=== PATIENT | male | born 1975 | race Caucasian/White ===

== ENCOUNTER → 2017-04-22 | Outpatient (CLI) | payer BC ==
--- NOTE | 2017-04-22 09:15 | Diagnostic Imaging Report ---
INDICATION: Back pain COMPARISON: None FINDINGS: Frontal and lateral views of the thoracic spine were obtained. Visualization of the upper thoracic spine is limited on the lateral projection. Alignment and vertebral heights are maintained. There is no fracture or destructive process. There are no large paraspinal masses. Limited views of the lungs are clear. IMPRESSION: 1. No acute fracture or dislocation of the thoracic spine. Dictated by: Dictated on workstation # [id number]
--- NOTE | 2017-04-22 09:18 | Diagnostic Imaging Report ---
INDICATION: Neck pain COMPARISON: None FINDINGS: Frontal, lateral, and odontoid views of the cervical spine were submitted. The cervical spine is visualized up to the C7/T1 level on the lateral projection. There is normal vertebral height and alignment. There is no evidence of fracture or bone destruction. No prevertebral soft tissue swelling is seen. No significant degenerative changes are noted. The open-mouth view demonstrates normal C1/C2 alignment. IMPRESSION: 1. Normal cervical spine series. Dictated by: Dictated on workstation # [id number]
--- NOTE | 2017-04-22 10:04 | Diagnostic Imaging Report ---
Three views of the lumbar spine. INDICATION: Back pain. FINDINGS: The alignment of the lumbar spine is satisfactory. The vertebral body heights are preserved. Disc heights are also preserved. No significant osteophyte formation seen. The paraspinal soft tissues appear unremarkable. IMPRESSION: Unremarkable exam. Dictated by: Dictated on workstation # [id number]
== END ==
LOC: RAD 08:41
PROVIDERS: ATTEND Nurse Practitioner Family
DX: M54.2 Cervicalgia (principal); M54.6 Pain in thoracic spine; M54.5 Low back pain
CPT/HCPCS: 72040; 72072; 72100

== ENCOUNTER → 2017-06-30 | Outpatient (CLI) | payer BC ==
--- NOTE | 2017-06-30 08:37 | Diagnostic Imaging Report ---
PROCEDURE: MR imaging cervical spine without contrast. TECHNIQUE: Multiplanar, multisequence MR imaging of the cervical spine was performed without contrast. INDICATION: Neck pain for 3 months. FINDINGS: Cervical spinal curvature and alignment are within normal limits. Vertebral body heights and disc spaces are maintained without evidence of marrow edema to indicate fracture. There is no evidence of focal disc protrusion or significant stenosis. There is a slender region of increased T2 signal centrally within the spinal cord at C6 and C7 without associated mass effect. Remainder of the spinal cord is unremarkable in appearance. Note is made of an approximately 2.4 x 2.3 cm nodule in the left lobe of thyroid gland. IMPRESSION: No evidence of significant stenosis is seen in the spinal cord. There maybe minimal syrinx present at C6 and C7 without associated mass effect. If indicated, contrast-enhanced MRI may be of use for further evaluation. Note is made of approximately 2.4 cm nodule in the left lobe of thyroid gland. Clinical correlation laboratory values may be of value. Biopsy could be performed if indicated. Dictated by: Dictated on workstation # [id number]
== END ==
LOC: RAD 07:14
PROVIDERS: ATTEND Nurse Practitioner Family
DX: E04.1 Nontoxic single thyroid nodule (principal); M79.643 Pain in unspecified hand
CPT/HCPCS: 72141

== ENCOUNTER → 2017-07-17 | Outpatient (CLI) | payer BC ==
--- NOTE | 2017-07-17 10:55 | Diagnostic Imaging Report ---
PROCEDURE: US Thyroid. TECHNIQUE: Multiple real-time grayscale images were obtained of the thyroid in various projections. INDICATION: Thyroid nodule. COMPARISON: None. FINDINGS: The right thyroid measures 57 x 19 x 18 mm and left 55 x 25 x 30 mm. There is a large well-defined nodule in the left mid thyroid measuring approximately 3.5 x 2 cm. 3 smaller nodules are seen in the right. The largest is near the isthmus measuring 11 x 8 mm. These are likely benign. There is no inflammation. IMPRESSION: Likely benign thyroid nodules. However, largest nodule in the left may be percutaneously biopsied to exclude underlying malignancy. Dictated by: Dictated on workstation # [id number]
== END ==
LOC: RAD 08:06
PROVIDERS: ATTEND Nurse Practitioner Family
DX: E04.2 Nontoxic multinodular goiter (principal)
CPT/HCPCS: 76536

== ENCOUNTER → 2017-08-06 | Outpatient (CLI) | payer BC ==
[~2017-08-06] VITALS: Ht 177.8 cm; Wt 88.5 kg
[2017-08-06 11:00] VITALS: BP_SYST 124; BP_SYST 134; BP_DIAS 64; BP_DIAS 84
--- NOTE | 2017-08-06 11:23 | Diagnostic Imaging Report ---
INDICATION: Left thyroid nodule. TECHNIQUE: Sonographic guidance was provided for Dr. Pak for performance of a left thyroid mass fine needle aspiration. Multiple passes were made. IMPRESSION: Sonographic guidance for thyroid biopsy by Dr. Pak. Dictated by: Dictated on workstation # [id number]
== END ==
LOC: RAD 10:41
PROVIDERS: ATTEND Otolaryngology Otolaryngology/Facial Plastic Surgery
DX: E04.1 Nontoxic single thyroid nodule (principal)
CPT/HCPCS: 76942

== ENCOUNTER → 2017-11-10 | Outpatient (CLI) | payer BC | LOC: RAD 11:03 | PROVIDERS: ATTEND Otolaryngology Otolaryngology/Facial Plastic Surgery | DX: Z53.9 Procedure and treatment not carried out, unspecified reason (principal) ==

== ENCOUNTER → 2017-11-19 | Outpatient (CLI) | payer BC ==
[~2017-11-19] VITALS: Ht 177.8 cm; Wt 88.5 kg
[2017-11-19 10:47] VITALS: BP 134/81
[2017-11-19 11:09] VITALS: BP 124/68
--- NOTE | 2017-11-19 11:40 | Diagnostic Imaging Report ---
INDICATION: Left thyroid nodule. Sonographic guidance was provided for Dr. Pak for left thyroid FNA. Images demonstrate large solid left lobe thyroid nodule. This was sampled by Dr. Pak. IMPRESSION: Sonographic guidance for left thyroid FNA. Dictated by: Dictated on workstation # [id number]
== END ==
LOC: RAD 10:40
PROVIDERS: ATTEND Otolaryngology Otolaryngology/Facial Plastic Surgery
DX: E04.1 Nontoxic single thyroid nodule (principal)
CPT/HCPCS: 76942; 88305

== ENCOUNTER → 2018-04-19 | Outpatient (CLI) | payer BC ==
[~2018-04-19] MED LIST: CATHETER FLUSH 10 ML SYR IV PRN; IOHEXOL 350 MG/ML 100 ML (OMNIPAQUE 350) VIAL IV ONE; NS 250 ML (IVPB) BAG IV ONE; RECEIVED CONTRAST (Hold Metformin) IV SCH
--- NOTE | 2018-04-19 16:07 | Diagnostic Imaging Report ---
PROCEDURE: CT neck soft tissue with contrast. TECHNIQUE: Multiple contiguous axial images were obtained through the neck after the administration of contrast. INDICATION: Neck abscess. COMPARISON: Left thyroid nodule aspiration 08/06/2017, 11/19/2017. MRI of the cervical spine without contrast 06/30/2017. FINDINGS: Interval postoperative findings of a total thyroidectomy. Within the anterior aspect of the operative bed is a well-circumscribed peripheral enhancing fluid collection measuring approximately 2.8 x 1.9 x 1.7 cm. Additional soft tissue attenuation and enhancement along the posterior inferior margin of the fluid collection is more consistent with phlegmon. No cervical lymphadenopathy. The major salivary glands are unremarkable. The pharyngeal and laryngeal soft tissues are symmetric bilaterally with no focal mass or enhancement. The floor of the mouth, tongue base and epiglottis are negative. No acute CT findings in the cervical spine. Skull base is intact. The visualized paranasal sinuses are clear. The lung apices are clear. IMPRESSION: Interval postoperative findings of a thyroidectomy. There is a well-circumscribed fluid collection in the surgical bed measuring up to 2.8 cm consistent with an abscess versus seroma. If clinically warranted, this should be readily accessible by ultrasound-guided aspiration. Dictated by: Dictated on workstation # [id number]
== END ==
LOC: RAD 15:28
PROVIDERS: ATTEND Physician Assistant Surgical
DX: C73 Malignant neoplasm of thyroid gland (principal); L02.11 Cutaneous abscess of neck; E89.0 Postprocedural hypothyroidism; Z90.89 Acquired absence of other organs; Z98.890 Other specified postprocedural states
CPT/HCPCS: 70491

== ENCOUNTER → 2018-10-29 | Outpatient (CLI) | payer BC ==
--- NOTE | 2018-10-29 14:19 | Diagnostic Imaging Report ---
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 FINDINGS: Postop changes of total thyroidectomy are noted. No definite residual or recurrent mass is seen in the thyroid bed. No fluid collection is identified. IMPRESSION: Thyroidectomy. No residual or recurrent mass is identified. Dictated by: Dictated on workstation # [id number]
== END ==
LOC: RAD 08:46
PROVIDERS: ATTEND Internal Medicine
DX: C73 Malignant neoplasm of thyroid gland (principal); Z90.89 Acquired absence of other organs
CPT/HCPCS: 76536

== ENCOUNTER → 2019-08-16 | Outpatient (CLI) | payer BC ==
--- NOTE | 2019-08-16 14:06 | Diagnostic Imaging Report ---
INDICATION: Thyroid carcinoma. FINDINGS: Patient is status post total thyroidectomy. Sonographic interrogation of the thyroid bed was performed. No definite residual thyroid tissue or mass is identified. No fluid collection is identified. IMPRESSION: Status post thyroidectomy. No residual or recurrent thyroid tissue or mass is detected. Dictated by: Dictated on workstation # [id number]
== END ==
LOC: RAD 12:27
PROVIDERS: ATTEND Internal Medicine
DX: C73 Malignant neoplasm of thyroid gland (principal); Z90.89 Acquired absence of other organs
CPT/HCPCS: 76536

== ENCOUNTER → 2020-02-21 | Outpatient (CLI) | payer BC | LOC: LABNPT 06:19 | PROVIDERS: ATTEND Family Medicine | DX: R51 Headache (principal); R09.81 Nasal congestion; Z20.828 Contact with and (suspected) exposure to other viral communicable diseases | CPT/HCPCS: 87635 ==

== ENCOUNTER → 2021-03-15 | Outpatient (CLI) | payer BC ==
[~2021-03-15] MED LIST changes: +HOLD METFORMIN - RECEIVED CONTRAST 20 ML VIAL IV SCH; +NS 100 ML (IVPB) BAG IV ONE; -NS 250 ML (IVPB) BAG IV ONE; -RECEIVED CONTRAST (Hold Metformin) IV SCH
--- NOTE | 2021-03-15 09:25 | Diagnostic Imaging Report ---
PROCEDURE: CT neck soft tissue with contrast. TECHNIQUE: Multiple contiguous axial images were obtained through the neck after the administration of contrast. Auto Exposure Controls were utilized during the CT exam to meet ALARA standards for radiation dose reduction. INDICATION: Difficulty swallowing The previous CT neck exam of 04/19/2018 there are postsurgical changes consistent with thyroidectomy. There is also a well-circumscribed fluid collection in the surgical bed measuring approximately 2.8 x 1.9 cm. This is felt to be related to a postoperative seroma and/or abscess. The subsequent ultrasound examination of the neck performed on 10/29/2018 failed to show any sign of residual or recurrent mass involving the thyroid bed. The thyroid ultrasound exam of 08/16/2019 was also unremarkable for any significant abnormality. On this exam there is still no evidence for a mass in the thyroid bed to suggest recurrent thyroid tissue. There is no mass or abscess identified either. There is no other mass or adenopathy involving the neck. The parotid and submandibular glands are generally unremarkable. The intracranial contents and the lung apices were visualized show no sign of an acute abnormality. Incidental note is made of a 1.1 cm oval area of diminished density near midline in the prevertebral soft tissues at the level of the dense. 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 This finding was also present on the prior study and has not changed. The bone windows are unremarkable for a fracture or for a destructive lesion. IMPRESSION: 1. There is no evidence for a mass in the thyroid bed to suggest recurrent thyroid tissue. The seroma/abscess seen in this area on the previous CT exam from 2018 has resolved as well. 2. There is no other mass or adenopathy involving the neck. 3. There is no sign of an acute abnormality. 4. There is a question of a small Tornwaldt cyst. This is unlikely to be clinically significant. Dictated by: Dictated on workstation # [id number]
== END ==
LOC: RAD 08:30
PROVIDERS: ATTEND Nurse Practitioner Family
DX: R13.10 Dysphagia, unspecified (principal); Z85.850 Personal history of malignant neoplasm of thyroid
CPT/HCPCS: 70491

== ENCOUNTER 2022-02-03 14:22 | Emergency (ER) | payer OTHER, BC ==
[~2022-02-03] VITALS: Ht 175 cm; Wt 88.0 kg
--- NOTE | 2022-02-03 14:39 | ED General ---
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 He was using a hydraulic press and a piece of the screw that was getting pressed broke off and hit him in the left upper abdomen. He has no other injuries. Unclear when his last tetanus shot was. Last p.o. intake was 11:00 this morning. Did not hit his head or get knocked out but the impact did not came to the ground. He has mild left-sided abdominal pain that is dull and throbbing. No aggravating or alleviating factors. Mild to moderate. Allergies and Home Medications Allergies Coded Allergies: No Known Drug Allergies (Unverified , 08/24/14) Patient Home Medication List Home Medication List Reviewed: Yes Review of Systems Review of Systems Constitutional: no symptoms reported EENTM: no symptoms reported Respiratory: no symptoms reported Cardiovascular: no symptoms reported Gastrointestinal: abdominal pain Genitourinary: no symptoms reported Musculoskeletal: no symptoms reported Skin: no symptoms reported Psychiatric/Neurological: No Symptoms Reported Hematologic/Lymphatic: No Symptoms Reported Immunological/Allergic: no symptoms reported Past Rfjblvj-Suvpzm-Fmfbyp Hx Patient Social History Tobacco Use?: Yes Substance use?: No Alcohol Use?: No Family Medical History Reviewed Nursing Family Hx No Pertinent Family Hx Physical Exam Vital Signs Vital Signs - First Documented 02/03/22 14:30 Temp 37.1 Pulse 72 Resp 16 B/P (MAP) 134/92 (106) Pulse Ox 94 O2 Delivery Room Air Capillary Refill : Height, Weight, BMI Height: 5'10.00" Weight: 195lbs. 0.0oz. 88.840200ja; 28.0 BMI Method: General Appearance: No Apparent Distress, WD/WN Eyes: Bilateral Eye Normal Inspection, Bilateral Eye PERRL, Bilateral Eye EOMI, Bilateral Eye Abnormal EOM, Bilateral Eye Abnormal Pupil, Bilateral Eye Conjunctivae Pale, Bilateral Eye Lid Inflammation, Bilateral Eye Photophobia, Bilateral Eye Scleral Icterus, Bilateral Eye Other HEENT: PERRL/EOMI, TMs Normal, Normal ENT Inspection, Pharynx Normal Neck: Full Range of Motion, Normal Inspection, Non Tender, Supple Respiratory: Chest Non Tender, Lungs Clear, Normal Breath Sounds, No Accessory Muscle Use, No Respiratory Distress Cardiovascular: Regular Rate, Rhythm, No Edema, No Gallop, No JVD, No Murmur, Normal Peripheral Pulses Gastrointestinal: Normal Bowel Sounds, No Organomegaly, No Pulsatile Mass, Soft, Tenderness (Tenderness palpation the left mid abdomen overlying an area of skin abrasion, possibly 1.5 cm maximal length. No rebound or guarding. No mass or megaly.) Back: Normal Inspection, No CVA Tenderness, No Vertebral Tenderness Extremity: Normal Capillary Refill, Normal Inspection, Normal Range of Motion, Non Tender Neurologic/Psychiatric: Oriented x3, No Motor/Sensory Deficits, Normal Mood/Affect Skin: Normal Color, Other (Abrasion as described above) Progress/Results/Core Measures Suspected Sepsis SIRS Temperature: Pulse: Respiratory Rate: Blood Pressure / Mean: Results/Orders My Orders Orders - LENOTIM GUERREROtPertmiguel(Acell),Tet Adult (Boostrix (02/03/22 14:45) Ct Abdomen/Pelvis W (02/03/22 14:34) Iohexol Injection (Omnipaque 350 Mg/Ml 1 (02/03/22 15:00) Ns (Ivpb) (Sodium Chloride 0.9% Ivpb Bag (02/03/22 15:00) Medications Given in ED Current Medications Medications Dose Ordered Sig/Wilfred Route Start Time Stop Time Status Last Admin Dose Admin Iohexol 100 ml ONCE ONCE IV 02/03/22 15:00 02/03/22 15:01 DC 02/03/22 15:24 80 ML Sodium Chloride 100 ml ONCE ONCE IV 02/03/22 15:00 02/03/22 15:01 DC 02/03/22 15:24 80 ML Vital Signs/I&O 02/03/22 14:30 Temp 37.1 Pulse 72 Resp 16 B/P (MAP) 134/92 (106) Pulse Ox 94 O2 Delivery Room Air Capillary Refill : Departure Communication (Admissions) Patient is significantly stable. Tetanus updated in the emergency department. CT scan negative. No other injuries. Discharged in stable condition. Impression Primary Impression: Left lateral abdominal pain Additional Impression: Skin abrasion Disposition: HOME, SELF-CARE Condition: Stable Departure-Patient Inst. Referrals: AZALIA GIRALDO MD (PCP/Family) Primary Care Physician Patient Instructions: Acute Pain, Adult (DC), Abrasions ED Add. Discharge Instructions: Use ibuprofen and Tylenol as needed for pains. All discharge instructions reviewed with patient and/or family. Voiced understanding. TIM BURR DO Feb 03, 2022 14:39
[2022-02-03] MEDS ORDERED: TETANUS,DIPTH,PERTUSS P/F (BOOSTRIX) 0.5 ML VIAL IM ONE (14:45)
[2022-02-03] MEDS ORDERED: NS 100 ML (IVPB) BAG IV ONE (15:00)
[2022-02-03] MEDS ORDERED: IOHEXOL 350 MG/ML 100 ML (OMNIPAQUE 350) VIAL IV ONE (15:00)
--- NOTE | 2022-02-03 15:51 | Diagnostic Imaging Report ---
EXAMINATION: CT abdomen and pelvis with intravenous contrast. TECHNIQUE: Multiple contiguous axial images were obtained through the abdomen and pelvis after the uneventful administration of intravenous contrast. All CT scans use one or more of the following dose optimizing techniques: automated exposure control, MA and/or KvP adjustment based on patient size and exam type or iterative reconstruction. HISTORY: Left-sided abdominal pain. Laceration to the abdomen. COMPARISON: None available. FINDINGS: The heart is unremarkable. The included lung bases are clear. Punctate areas of hypoattenuation are visualized throughout the liver. No enhancing hepatic lesion. The portal vein is patent. The gallbladder is unremarkable. Nonspecific splenomegaly is seen measuring 15.1 cm craniocaudal. No focal splenic lesions. Benign-appearing cysts are seen in the kidneys. No solid renal mass. No hydronephrosis or renal calculi. The urinary bladder is nondistended. No bladder calculi. The pancreas and adrenal glands have a normal appearance. There is no pathologically enlarged mesenteric or retroperitoneal adenopathy. The bowel loops are nondilated. The appendix is visualized in the right lower quadrant and has a normal appearance. Scattered diverticula are seen in the descending and sigmoid colon without evidence of acute diverticulitis. There is no free fluid or free air. No acute osseous abnormalities. Nonspecific inflammation is seen in the superficial soft tissues of the ventral abdomen left of midline. No radiopaque foreign body. There is no free air, loculated collection, or adenopathy in the pelvis. IMPRESSION: 1. No evidence of acute injury in the abdomen and pelvis. No free fluid or free air. 2. Mild inflammation is seen in the superficial soft tissues of the ventral abdomen left of midline. No radiopaque foreign bodies. 3. Nonspecific splenomegaly. 4. Scattered diverticula in the descending and sigmoid colon without evidence of acute diverticulitis. Dictated by: Dictated on workstation # [id number]
[2022-02-03 16:07] VITALS: BP 124/73
== END 2022-02-03 16:07 | disposition home or self-care (01) ==
LOC: EDUNIT# 14:27 → ER 14:28
DX: S30.811A Abrasion of abdominal wall, initial encounter (principal); Z23 Encounter for immunization; W22.8XXA Striking against or struck by other objects, initial encounter; Y99.0 Civilian activity done for income or pay
CPT/HCPCS: 74177; 90715

== ENCOUNTER → 2022-04-01 | Outpatient (CLI) | payer BC ==
--- NOTE | 2022-04-01 09:13 | Diagnostic Imaging Report ---
INDICATION: PAPILLARY THYROID CARCINOMA, POST TOTAL THYROIDECTOMY TECHNIQUE: Multiple real time orozco scale sonographic images were obtained of the soft tissue neck. CORRELATION STUDY: 08/16/2019, 07/17/2017 FINDINGS: Imaging performed of the thyroid bed demonstrates no definitive abnormal soft tissue echotexture to suggest definitive residual or recurrent thyroid gland. No discrete concerning mass. IMPRESSION: 1.Post-thyroidectomy. No definitive soft tissue echotexture to suggest residual/recurrent thyroid gland or mass. Dictated by: Dictated on workstation # [id number]
== END ==
LOC: RAD 07:58
PROVIDERS: ATTEND Physician Assistant
DX: C73 Malignant neoplasm of thyroid gland (principal); Z90.89 Acquired absence of other organs
CPT/HCPCS: 76536